=== PATIENT | female | born 1990 | race Caucasian/White ===

== ENCOUNTER → 2017-10-27 | Outpatient (CLI) | payer BC | LOC: M WUC 15:05 | DX: S80.02XA Contusion of left knee, initial encounter (principal); X58.XXXA Exposure to other specified factors, initial encounter; Y92.89 Other specified places as the place of occurrence of the external cause; Y93.89 Activity, other specified; Y99.8 Other external cause status | CPT/HCPCS: 73564 ==

== ENCOUNTER → 2020-05-24 | Outpatient (REF) | payer BC | LOC: M LAB REF 11:38 | PROVIDERS: ATTEND Physician Assistant | DX: N39.0 Urinary tract infection, site not specified (principal) ==

== ENCOUNTER → 2020-08-11 | Outpatient (CLI) | payer BC ==
--- NOTE | 2020-08-16 10:18 | REP ---
DATE: 08/11/2020 LEFT SHOULDER SERIES CLINICAL: Left shoulder pain TECHNIQUE: Internal rotation, external rotation and wide view of the left shoulder. FINDINGS: Osseous structures, joint spaces and surrounding soft tissues are age appropriate. Acromioclavicular and glenohumeral joints are intact. No acute fracture or dislocation. Subacromial space is normal. No periarticular calcifications or loose bodies noted. IMPRESSION: Normal age-appropriate left shoulder radiographs. MTDD
--- NOTE | 2020-08-16 10:19 | REP ---
DATE: 08/11/2020 CERVICAL SPINE SERIES CLINICAL: Neck and left shoulder pain. TECHNIQUE: AP, lateral and open mouth views of the cervical spine. FINDINGS: Alignment and lordosis maintained. Vertebral body and disk spaces are normal. No evidence for acute fractures, compression injury or subluxation. No significant degenerative changes are appreciated. Open mouth view demonstrates normal T1, T2 articulation and odontoid process. IMPRESSION: Normal age-appropriate cervical spine series. MTDD
== END ==
LOC: M ADAMS 11:47
PROVIDERS: ATTEND Physician Assistant
DX: M25.512 Pain in left shoulder (principal)

== ENCOUNTER → 2021-06-17 | Outpatient (CLI) | payer BC ==
--- NOTE | 2021-06-17 15:07 | REP ---
INDICATION: RIGHT HIP AND KNEE PAIN. COMPARISON: None. TECHNIQUE: Five views lumbosacral spine. FINDINGS: There is no compression fracture or malalignment. There is normal lumbar lordosis. Disc spaces are well preserved. Posterior elements are intact. IMPRESSION: Negative lumbosacral spine series. <Electronically signed by Darrin Bowers > 06/17/21 [id number]
--- NOTE | 2021-06-17 15:09 | REP ---
INDICATION: RIGHT HIP AND KNEE PAIN. COMPARISON: None. TECHNIQUE: Two views right hip. FINDINGS: There is no evidence of acute fracture, dislocation or intrinsic bone disease. The hip joint is normal. IMPRESSION: Normal right hip. <Electronically signed by Darrin Bowers > 06/17/21 [id number]
== END ==
LOC: M ADAMS 14:26
PROVIDERS: ATTEND Physician Assistant Medical
DX: M25.551 Pain in right hip (principal); M25.561 Pain in right knee

== ENCOUNTER 2022-02-14 10:54 | Emergency (ER) | payer BC ==
[~2022-02-14] VITALS: Ht 167.6 cm; Wt 76.5 kg
[2022-02-14] MEDS ORDERED: PRED20TA (11:14)
[2022-02-14] MEDS ORDERED: BENA25TA5 PO (11:14)
[2022-02-14] MEDS ORDERED: FAMOTIDINE 20MG/2ML VIAL IVP ONE (13:30)
[2022-02-14] MEDS ORDERED: NS 1,000 ML IV ONE (13:30)
[2022-02-14 14:28] LABS: BASO % 0.2 % (0.0-1.0); HEMATOCRIT 43.3 % (36.0-47.0); HEMOGLOBIN 15.1 g/dl (12.0-15.5); LYMPH # 0.8 10^3/uL (1.5-5.0); LYMPH % 6.1 % (24.0-44.0); MEAN CORPUSCULAR HEMOGLOBIN 28.5 pg (27.0-33.0); MEAN CORPUSCULAR HGB CONC 34.9 g/dl (32.0-36.5); MEAN CORPUSCULAR VOLUME 81.9 fl (80.0-96.0); MONO # 0.6 10^3/uL (0.0-0.8); NEUTROPHILS # 12.3 10^3/uL (1.5-8.5); NEUTROPHILS % 89.1 % (36.0-66.0); RED BLOOD COUNT 5.29 10^6/uL (4.00-5.40); WHITE BLOOD COUNT 13.8 10^3/uL (4.0-10.0)
[2022-02-14 14:50] LABS: PLATELET CLUMPS MODERATE AMT; PLATELET ESTIMATE NORMAL (NORMAL)
[2022-02-14 14:51] LABS: PLATELET COUNT, AUTOMATED 172 10^3/uL (150-450)
[2022-02-14] MEDS ORDERED: diphenhydrAMINE 50MG/ML VIAL (J1200) IV ONE (15:40)
[2022-02-14 16:00] LABS: ALBUMIN 3.8 GM/DL (3.2-5.2); ALT/SGPT 28 U/L (12-78); BILIRUBIN,DIRECT 0.3 MG/DL (0.0-0.2); BILIRUBIN,TOTAL 0.7 MG/DL (0.2-1.0); BLOOD UREA NITROGEN 10 MG/DL (7-18); CALCIUM LEVEL 8.8 MG/DL (8.5-10.1); CARBON DIOXIDE LEVEL 25 MEQ/L (21-32); CHLORIDE LEVEL 101 MEQ/L (98-107); CREATININE FOR GFR 0.76 MG/DL (0.55-1.30); FREE T4 1.09 NG/DL (0.76-1.46); GLOMERULAR FILTRATION RATE > 60.0 (>60); GLUCOSE, FASTING 114 MG/DL (70-100); SODIUM LEVEL 133 MEQ/L (136-145); TOTAL PROTEIN 6.7 GM/DL (6.4-8.2)
[2022-02-14 16:06] VITALS: BP 134/74
[2022-02-14 16:09] LABS: HCG, SERUM QUALITATIVE NEGATIVE (NEGATIVE)
[2022-02-14] MEDS ORDERED: FAMO20TA PO (16:24)
== END 2022-02-14 16:43 | disposition home or self-care (01) ==
LOC: M ED 10:54
DX: L50.9 Urticaria, unspecified (principal); R11.2 Nausea with vomiting, unspecified; Z87.442 Personal history of urinary calculi

== ENCOUNTER → 2024-09-12 | Outpatient (CLI) | payer BC ==
[~2024-09-12] MED LIST: BENA25TA5 PO; FAMO20TA PO; PRED20TA
== END ==
LOC: M RAD 06:57
PROVIDERS: ATTEND Physician Assistant Medical
DX: R51.9 Headache, unspecified (principal); J34.89 Other specified disorders of nose and nasal sinuses; S09.92XA Unspecified injury of nose, initial encounter; R09.81 Nasal congestion; S09.93XA Unspecified injury of face, initial encounter; X58.XXXA Exposure to other specified factors, initial encounter; Y92.9 Unspecified place or not applicable

== ENCOUNTER → 2024-11-11 | Outpatient (REF) | payer BC ==
[2024-11-11 18:26] LABS: BASO % 0.6 % (0.0-1.0); EOS # 0.3 10^3/uL (0.0-0.5); EOS % 4.8 % (0.0-3.0); HEMATOCRIT 40.1 % (36.0-47.0); HEMOGLOBIN 13.3 g/dl (12.0-15.5); LYMPH # 1.6 10^3/uL (1.5-5.0); LYMPH % 25.4 % (24.0-44.0); MEAN CORPUSCULAR HEMOGLOBIN 29.3 pg (27.0-33.0); MEAN CORPUSCULAR HGB CONC 33.2 g/dl (32.0-36.5); MEAN CORPUSCULAR VOLUME 88.3 fl (80.0-96.0); MONO # 0.6 10^3/uL (0.0-0.8); MONO % 9.3 % (2.0-8.0); NEUTROPHILS # 3.7 10^3/uL (1.5-8.5); NEUTROPHILS % 59.6 % (36.0-66.0); PLATELET COUNT, AUTOMATED 243 10^3/uL (150-450); RED BLOOD COUNT 4.54 10^6/uL (4.00-5.40); WHITE BLOOD COUNT 6.3 10^3/uL (4.0-10.0)
[2024-11-11 18:57] LABS: FREE T4 1.36 NG/DL (0.89-1.76); THYROID STIMULATING HORMONE 2.425 uIU/ML (0.55-4.78)
[2024-11-11 18:58] LABS: FOLATE 22.5 NG/ML (>5.4); IRON (FE) 71 UG/DL (50-170); TOTAL 25(OH) VITAMIN D 27.6 NG/ML (20.0-100.0); VITAMIN B12 LEVEL 961 PG/ML (211-911)
[2024-11-11 18:59] LABS: ALKALINE PHOSPHATASE 51 U/L (35-104); ALT/SGPT 22 U/L (7.0-40); AST/SGOT 13 U/L (<34); BILIRUBIN,TOTAL 0.3 MG/DL (0.3-1.2); BLOOD UREA NITROGEN 13 MG/DL (9-23); CALCIUM LEVEL 9.2 MG/DL (8.5-10.1); CARBON DIOXIDE LEVEL 29 MMOL/L (20-31); CHLORIDE LEVEL 107 MMOL/L (98-107); CREATININE FOR GFR 0.73 MG/DL (0.55-1.30); GLOMERULAR FILTRATION RATE > 60.0 (>60); GLUCOSE, FASTING 85 MG/DL (60-100); POTASSIUM SERUM 4.1 MMOL/L (3.5-5.1); SODIUM LEVEL 143 MMOL/L (136-145); TOTAL PROTEIN 7.5 G/DL (5.7-8.2)
== END ==
LOC: M SFHCADAM 15:04
PROVIDERS: ATTEND Physician Assistant Medical
DX: Z00.00 Encounter for general adult medical examination without abnormal findings (principal); R51.9 Headache, unspecified

== ENCOUNTER → 2024-11-27 | Outpatient (CLI) | payer BC | LOC: M PLARAD 15:05 | PROVIDERS: ATTEND Physician Assistant Medical | DX: R51.9 Headache, unspecified (principal); R90.82 White matter disease, unspecified ==

== ENCOUNTER → 2025-01-23 | Outpatient (CLI) | payer BC ==
[2025-01-23 14:06] LABS: APPEARANCE, URINE CLEAR (CLEAR); BACTERIA, URINE AUTO NEGATIVE (NEGATIVE); BILIRUBIN, URINE AUTO NEGATIVE (NEGATIVE); BLOOD, URINE BLOOD 2+ (NEGATIVE); COLOR, URINE STRAW (YELLOW); GLUCOSE, URINE (UA) AUTO NEGATIVE (NEGATIVE); KETONE, URINE AUTO NEGATIVE (NEGATIVE); LEUKOCYTE ESTERASE, URINE AUTO 1+ (NEGATIVE); NITRITE, URINE AUTO NEGATIVE (NEGATIVE); PROTEIN, URINE AUTO NEGATIVE (NEGATIVE); RBC, URINE AUTO 2 /HPF (0-3); SPECIFIC GRAVITY URINE AUTO 1.006 (1.002-1.035); SQUAMOUS EPITHELIAL CELL UR AU 0 /HPF (0-6); UROBILINOGEN, URINE AUTO 0.2 mg/dL (0.0-2.0); WBC, URINE AUTO 30 /HPF (0-3)
== END ==
LOC: M RAD 13:10
PROVIDERS: ATTEND Physician Assistant Medical
DX: R30.0 Dysuria (principal); Z87.442 Personal history of urinary calculi; R16.1 Splenomegaly, not elsewhere classified

== ENCOUNTER 2025-02-12 10:44 | Day surgery (SDC) | payer BC ==
[~2025-02-12] VITALS: Ht 157.5 cm; Wt 80.3 kg
[~2025-02-12 10:44] MED LIST changes: +ALTA1TAB3 PO; +FAMO1TAB11 PO; +IBUP200T46 PO; +IMIT50TA PO
[2025-02-12] MEDS: LR 1,000 ML IV SCH (11:27)
[2025-02-12] MEDS: METHYLENE BLUE 0.5% (5MG/ML) 10 ML AMP (PROVAYBLUE) As Ordered ONE (12:05)
[2025-02-12] MEDS ORDERED: LIDOCAINE 2% 100MG/5ML SDV (FOR ANES.) As Ordered ONE (12:27)
[2025-02-12] MEDS ORDERED: propofoL 200 MG/20 ML VIAL As Ordered ONE (12:27)
[2025-02-12] MEDS ORDERED: ROCURONIUM BROMIDE 50MG/5ML VIAL As Ordered ONE (12:29)
[2025-02-12] MEDS ORDERED: SUGAMMADEX SODIUM 500 MG/5 ML VIAL (BRIDION) As Ordered ONE (12:29)
[2025-02-12] MEDS ORDERED: ONDANSETRON 4MG 2ML VIAL As Ordered ONE (12:29)
[2025-02-12] MEDS ORDERED: MIDAZOLAM INJ 2MG/2ML VIAL As Ordered ONE (12:30)
[2025-02-12] MEDS ORDERED: fentaNYL 250 MCG/5 ML INJECTION As Ordered ONE (12:30)
[2025-02-12] MEDS ORDERED: ACETAMINOPHEN 1000MG/100ML IV BAG As Ordered ONE (13:33)
[2025-02-12] MEDS: EPINEPHrine 1MG/ML INJ 30ML MD-VIAL As Ordered ONE (14:05)
[2025-02-12] MEDS: SODIUM CHLORIDE 0.9% NASAL GEL 15GM (AYR) As Ordered ONE (14:10)
[2025-02-12] MEDS ORDERED: fentaNYL 100 MCG/2 ML INJECTION IV PRN (14:15)
[2025-02-12] MEDS: LIDOCAINE W/EPINEPHRINE 1% 20ML VIAL As Ordered ONE (14:17)
[2025-02-12] MEDS: MORPHINE 2 MG/ML 1ML VIAL IV PRN (14:39)
[2025-02-12] MEDS: ONDANSETRON 4MG 2ML VIAL IV PRN (14:39)
[2025-02-12] MEDS: oxyCODONE 5MG TAB PO PRN (14:44)
[2025-02-12] MEDS: OXYMETAZOLINE 0.05% NASAL SPRAY STA (16:07)
[2025-02-12] MEDS ORDERED: OXYMETAZOLINE 0.05% NASAL SPRAY As Ordered ONE (16:12)
[2025-02-12 17:50] VITALS: BP 143/70; TEMP 97.8; O2SAT 99
== END 2025-02-12 18:04 | disposition home or self-care (01) ==
LOC: M SDC 10:44
PROVIDERS: ATTEND Otolaryngology
DX: J34.2 Deviated nasal septum (principal); R09.81 Nasal congestion; Z79.3 Long term (current) use of hormonal contraceptives
CPT/HCPCS: 30520; J0131; J0171; J1100; J2250; J2405; J3010; Q9968